=== PATIENT | female | born 1965 | race Caucasian/White ===

== ENCOUNTER 2024-12-26 15:47 | Emergency (ER) | payer OTHER ==
[~2024-12-26] VITALS: Ht 162.6 cm; Wt 102.1 kg
[~2024-12-26 15:47] MED LIST: MEDROL4 M2 PO; METHOCARBAMOL750 MG PO
[2024-12-26] MEDS ORDERED: ONDANSETRON ODT4 MG PO (19:15)
[2024-12-26 19:17] VITALS: PULSE 48; RESP 17; TEMP 97.9
[2024-12-26 19:48] VITALS: BP 186/76; PULSE 48; RESP 17; TEMP 97.9; O2SAT 99
== END 2024-12-26 19:55 | disposition home or self-care (01) ==
LOC: ER 19:06
DX: S06.0X0A Concussion without loss of consciousness, initial encounter (principal); R51.9 Headache, unspecified; R11.0 Nausea; W01.198A Fall on same level from slipping, tripping and stumbling with subsequent striking against other object, initial encounter; Y93.E1 Activity, personal bathing and showering; Y92.89 Other specified places as the place of occurrence of the external cause; R73.03 Prediabetes; E78.00 Pure hypercholesterolemia, unspecified; M06.9 Rheumatoid arthritis, unspecified; R94.31 Abnormal electrocardiogram [ECG] [EKG]
CPT/HCPCS: 70450; 72125; 93005; 99283